=== PATIENT | female | born 1990 | race Caucasian/White ===

== ENCOUNTER 2017-03-23 09:50 | Day surgery (SDC) | payer OTHER ==
[2017-03-21 10:25] VITALS: BMI 19.0
[2017-03-23] MEDS ORDERED: DEXAMETHASONE SOD PHOSPHATE 4 MG/1 ML VIAL ONE (10:19)
[2017-03-23] MEDS ORDERED: MIDAZOLAM HCL 2 MG/2 ML SINGLE DOSE VIAL ONE (10:19)
[2017-03-23] MEDS ORDERED: PROPOFOL 20 ML ONE ×2 (10:19)
[2017-03-23] MEDS ORDERED: ONDANSETRON 4 MG/2 ML VIAL ONE (10:19)
[2017-03-23] MEDS ORDERED: KETOROLAC TROMETHAMINE 30 MG/1 ML VIAL ONE (10:19)
[2017-03-23] MEDS ORDERED: DEXAMETHASONE SOD PHOSPHATE/PF 10 MG/ML SDV ONE (11:56)
[2017-03-23] MEDS ORDERED: ROPIVACAINE HCL 0.5% 30ML VIAL ONE ×2 (11:56→12:00)
[2017-03-23 15:25] VITALS: BP 95/57; PULSE 62; TEMP 98
--- NOTE | 2017-03-25 07:46 | OP ---
DATE OF OPERATION: 03/23/2017 PREOPERATIVE DIAGNOSIS: Left ring finger laceration with radial digital nerve laceration. POSTOPERATIVE DIAGNOSIS: Left ring finger laceration with radial digital nerve laceration. OPERATIVE PROCEDURE: Left ring finger radial digital nerve repair with use of operative microscope. SURGEON: Kailey Contreras MD REGIONAL LIAISON: KIRIT De ANESTHESIA: Regional. COMPLICATIONS: None. ESTIMATED BLOOD LOSS: Minimal. INDICATION FOR PROCEDURE: The patient is a 27-year-old female with the above finding indicated for operative treatment. Risks, benefits, alternatives were discussed with the patient at length. Proper informed consent was obtained. Of note, the patient did state that she had a positive test and was , and myself as well as the anesthesiologist specifically discussed the risks of having surgery and anesthesia given the fact that she is and the risk to the as well as to the fetus. She understood and desired to proceed. Conversation was also held with the patient's , who desired to proceed. DESCRIPTION OF PROCEDURE: After proper identification of the patient and correct operative site, patient was brought to the operating room and placed supine on the operating table. All bony prominences were padded. Regional anesthesia was given and adequate for procedure. Left upper extremity was prepped and draped in the usual sterile fashion. A well-padded tourniquet was placed over the sterile prep. Esmarch bandage used to exsanguinate the left upper extremity. Tourniquet was inflated to 250 mmHg. Prior sutures were removed. The patient had a complex laceration in the ring-long web space. This went deep into the palmar surface at the proximal finger crease volarly. Complete laceration of the radial digital nerve was noted as well as the radial digital artery. Since the finger was well perfused, no attempt was made to repair the radial digital artery. The nerve ends were debrided and found to be easily apposable without any tension. Flexor tendons were found to be intact. Microscope was brought into the field, and direct anastomosis was performed of the digital nerve without tension using 8-0 nylon interrupted sutures. Epineural repair was performed. This ultimately provided a tension-free repair even with the finger fully extended. The wound was irrigated with saline and the skin was repaired using 5-0 fast-absorbing plain gut as well as Dermabond. Tourniquet was released. The finger was well perfused. Sterile dressings and a splint were applied. Patient was brought to the recovery in stable condition. She tolerated the procedure well. Simon Huizar, the tmd teacher assistant, was integral throughout the procedure. Procedure could not have been performed without a skilled operative tmd teacher assistant. KAILEY CONTRERAS M.D. [id number]
== END 2017-03-23 15:00 | disposition home or self-care (01) ==
LOC: FASU 09:50
PROVIDERS: ATTEND Orthopaedic Surgery Hand Surgery
PROC: 01Q60ZZ Repair Radial Nerve, Open Approach (ICD-10-PCS; principal; 2017-03-23 12:30)
DX: S64.495A Injury of digital nerve of left ring finger, initial encounter (principal); X58.XXXA Exposure to other specified factors, initial encounter; Y93.9 Activity, unspecified; Y92.9 Unspecified place or not applicable
CPT/HCPCS: 84703